=== PATIENT | male | born 2000 | race Asian ===

== ENCOUNTER 2023-09-17 07:57 | Observation (INO) ==
--- OUTSIDE RECORDS SUMMARY | 2023-09-17 08:01 | External Medical Summary | Continuity of Care Document ---
Author Name Unknown Organization [facility] [address] [facility] [address] Address [address] [place], [place] [id number] Encounter [facility] [id number] Date(s): 05/27/23 - 05/27/23 [facility] [address] [facility] [address] [facility] [address] [place] [id number] Encounter Diagnosis Closed patellar dislocation(Discharge Diagnosis) - 05/27/23 Discharge Disposition: Home or Self Care Attending Physician: DAVID Meza [place] Allergies, Adverse Reactions, Alerts No Known Medication Allergies Medications No Known Medications Mental Status 05/27/23 Barriers to Learning one year None evide nt Mandatory Health Literacy Documentation Yes Health Literacy Communication Barriers N ever Primary Language Persian Problem List No Chronic Problems Diagnosis Diagnosis Type Effective Dates Health Status Clinical Service Informant Closed patellar dislocation Discharge Diagnosis 05/27/23 Vital Signs Most recent to oldest [Reference Range]: 1 Height 164.9 cm (05/27/23 2:22 PM) Patient Weight 54 kg (05/27/23 2:22 PM) Body Mass Index 19.86 kg/m2 (05/27/23 2:22 PM) Social History Social History Type Response Smoking Status Never smoked cigaret simran Sex Male
[2023-09-17] MEDS ORDERED: MoRPHine SULFATE 4 MG/ML 1 ML CARP\\VIAL IV STA (08:14)
[2023-09-17] MEDS ORDERED: ONDANSETRON INJ 2 MG/ML 2 ML VIAL IV STA (08:14)
[2023-09-17] MEDS ORDERED: SODIUM CHLORIDE 0.9% 1,000 ML IV ONE ×2 (08:14→10:40)
--- NOTE | 2023-09-17 08:17 | Emergency Department Note ---
Impression & Plan Acute appendicitis with localized peritonitis ED Provider Note Name: KATIE MADERA Age: 22 Sex: Male Arrives Via: Walk-In Informant: Patient ED Provider: Ruben Estrada MD Chief Complaint: Abdominal pain Impression: As per impressions above Medical Decision Makin-year-old healthy male with history of acne arrives for evaluation of right lower quadrant abdominal pain over the last few hours. He does have tenderness palpation of the right lower quadrant. CT of the abdomen pelvis was obtained which reveals acute appendicitis. Laboratory workup is relatively benign. I do not feel that he is septic at this time. He is empirically given IV Mefoxin. I discussed with general surgeon who evaluated the patient and will bring him to the operating room. Triage/Nursing Notes reviewed by Me Differential:Appendicitis, inflammatory bowel disease, renal colic, UTI, ischemia, many other pathologies considered. Vital Signs: reviewed and remarkable for mildly tachycardic Interventions: Normal saline bolus 1 L IV x 2, morphine IV, Zofran IV, Mefoxin IV Labs:ED labs Reviewed by me and remarkable for no significant abnormalities Imaging:CT abdomen pelvis as per my informal interpretation reveals acute appendicitis with inflammatory changes no evidence of free air or abscess appreciated. Confirmed by radiologist. Consults:Dr. Garza of the general surgery service will take patient to the OR. Plan: Disposition: OR Condition: Good History of Present Illness: 22-year-old male arrives for evaluation of abdominal pain. Patient states he has been having right lower quadrant abdominal pain throughout the last several hours. Initially started as periumbilical and gradually worsening. Now associated with nausea. Does note some mild urinary frequency/urgency. No history of renal colic, abdominal infections, abdominal surgeries. He has not had any recent falls, trauma, injuries. Denies any other symptoms such as chest pain, fevers, vomiting, diarrhea, leg swelling, rashes or other concerning signs or symptoms. No medication prior to arrival. Past Medical History: Acne Home Medications: Acne medication Allergies: No known medication allergies Vitals:Blood Pressure: 124/79, Pulse 106, RR 20, T 36.4C, O2 100% on RA Physical Exam: GENERAL: Patient is moderately uncomfortable appearing and in moderate distress. RESPIRATORY: No dyspnea. Clear to auscultation and equal bilaterally. CARDIOVASCULAR: Regular rate and rhythm.No murmur appreciated. GASTROINTESTINAL: Moderate right lower quadrant tenderness palpation no peritonitis normal active bowel sounds BACK: No midline tenderness, no CVA tenderness EXTREMITIES: Normal motion all extremities, no cyanosis, no edema. NEUROLOGIC: Alert and oriented. No focal neurologic deficits appreciated SKIN: No rash, no jaundice, no diaphoresis. PSYCH: Appropriate GCS: 15 ED Course: Times/Reassessments: Patient is feeling a bit better after some IV pain medicine. He is agreeable to evaluation by surgeon. Ruben Estrada MD Past Med/Surg History Medical History No pertinent past medical history Surgical History No pertinent past surgical history Social History Smoking Status: Never smoker Preferred Language: Romanian Feels Safe at Home: Yes Allergies Allergies Allergy/AdvReac Type Severity Reaction Status Date / Time No Known Allergies Allergy Verified 09/17/23 09:21 Home Meds Home Medications Medication Instructions Recorded Confirmed isotretinoin 30 mg capsule 30 mg PO DAILY 09/17/23 09/17/23 (Accutane) Results & Data (ED) Vital Signs Vital Signs - 24 hr 09/17/23 07:57 09/17/23 08:00 09/17/23 08:45 Temperature 36.4 C L Temperature Source Temporal Artery Scan Pulse Rate 106 H 88 Pulse Rate [Apical] 84 Pulse Rhythm [Apical] Pulse Strength [Apical] Respiratory Rate 16 20 Respiratory Effort / Characteristics Non-Labored Respiratory Depth Normal Respiratory Pattern Blood Pressure 124/79 Blood Pressure [Left Arm] 128/76 Blood Pressure Mean 94 Blood Pressure Mean [Left Arm] 93 Pulse Oximetry 100 100 Oxygen Delivery Method Room Air Oxygen Flow Rate Sepsis Recent Fever Within 48 Hours No Sepsis New/Unexplained Change in Mental Status N/A Sepsis Action Taken by Nursing No Action Required 09/17/23 10:51 09/17/23 13:23 09/17/23 13:30 Temperature 36.0 C L Temperature Source Temporal Artery Scan Pulse Rate Pulse Rate [Apical] 129 H 92 H 96 H Pulse Rhythm [Apical] Regular Regular Pulse Strength [Apical] Normal Normal Respiratory Rate 16 16 18 Respiratory Effort / Characteristics Non-Labored Spontaneous Non-Labored Spontaneous Respiratory Depth Normal Normal Respiratory Pattern Regular Regular Blood Pressure Blood Pressure [Left Arm] 143/88 H 103/51 L 107/56 L Blood Pressure Mean Blood Pressure Mean [Left Arm] 106 68 73 Pulse Oximetry 100 100 100 Oxygen Delivery Method Room Air Oxymask Oxymask Oxygen Flow Rate 3 6 Sepsis Recent Fever Within 48 Hours Sepsis New/Unexplained Change in Mental Status Sepsis Action Taken by Nursing 09/17/23 13:40 09/17/23 13:50 09/17/23 14:00 Temperature Temperature Source Pulse Rate Pulse Rate [Apical] 100 H 100 H 98 H Pulse Rhythm [Apical] Regular Regular Regular Pulse Strength [Apical] Normal Normal Normal Respiratory Rate 16 20 17 Respiratory Effort / Characteristics Non-Labored Spontaneous Non-Labored Spontaneous Non-Labored Spontaneous Respiratory Depth Normal Normal Normal Respiratory Pattern Regular Regular Regular Blood Pressure Blood Pressure [Left Arm] 121/62 129/84 141/71 H Blood Pressure Mean Blood Pressure Mean [Left Arm] 81 99 94 Pulse Oximetry 100 99 100 Oxygen Delivery Method Room Air Room Air Room Air Oxygen Flow Rate 0 0 0 Sepsis Recent Fever Within 48 Hours Sepsis New/Unexplained Change in Mental Status Sepsis Action Taken by Nursing 09/17/23 14:10 09/17/23 14:25 Temperature 36.6 C Temperature Source Oral Pulse Rate Pulse Rate [Apical] 87 102 H Pulse Rhythm [Apical] Regular Regular Pulse Strength [Apical] Normal Normal Respiratory Rate 16 16 Respiratory Effort / Characteristics Non-Labored Spontaneous Non-Labored Spontaneous Respiratory Depth Normal Normal Respiratory Pattern Regular Regular Blood Pressure Blood Pressure [Left Arm] 138/78 152/69 H Blood Pressure Mean Blood Pressure Mean [Left Arm] 98 96 Pulse Oximetry 98 96 Oxygen Delivery Method Room Air Room Air Oxygen Flow Rate 0 0 Sepsis Recent Fever Within 48 Hours Sepsis New/Unexplained Change in Mental Status Sepsis Action Taken by Nursing Laboratory Data 09/17/23 08:30 09/17/23 08:30 Lab Results 09/17/23 09/17/23 Range/Units 08:30 10:41 WBC 11.66 H (4.8-10.8) K/ul RBC 5.75 (4.70-6.10) M/uL Hgb 13.8 L (14.0-18.0) g/dl Hct 43.9 (42.0-52.0) % MCV 76.3 L (80.0-100.0) fL MCH 24.0 L (25.0-34.0) pg MCHC 31.4 L (32.0-36.0) g/dL RDW Std Deviation 40.3 (36.4-46.3) fL RDW Coeff of Grant 14.7 H (11.5-14.5) % Plt Count 273 (130-400) K/uL MPV 9.1 L (9.4-12.4) fL Immature Gran % (Auto) 0.4 % Neut % (Auto) 70.7 % Lymph % (Auto) 22.0 % [place] % (Auto) 6.1 % Eos % (Auto) 0.6 % Baso % (Auto) 0.2 % Neut # (Auto) 8.25 H (1.40-6.50) K/uL Lymph # (Auto) 2.56 (1.20-3.40) K/uL [place] # (Auto) 0.71 H (0.11-0.59) K/uL Eos # (Auto) 0.07 (0.00-0.50) K/uL Baso # (Auto) 0.02 (0.00-0.20) K/uL Immature Gran # (Auto) 0.05 (0.01-0.20) K/uL Sodium 138 (136-145) mmol/L Potassium 3.8 (3.5-5.1) mmol/L Chloride 101 (98-107) mmol/L Carbon Dioxide 29 (21-32) mmol/L Anion Gap 8 (3-11) BUN 15 (6-23) mg/dl Creatinine 1.08 (0.6-1.4) mg/dl Est Cr Clr Drug Dosing 82.3 ml/min Est GFR ( Amer) 113.9 ml/min Est GFR (Non-Af Amer) 98.3 ml/min BUN/Creatinine Ratio 13.9 (10-20) Glucose 93 (70-99(Fasting)) mg/dl Calcium 9.8 (8.6-10.3) mg/dl Total Bilirubin 0.4 (0.2-1.0) mg/dl Direct Bilirubin 0.1 (0-0.2) mg/dl AST 16 (13-39) U/L ALT 15 (7-52) U/L Alkaline Phosphatase 60 (34-104) U/L Total Protein 7.6 (6.0-8.3) gm/dl Albumin 4.8 (3.4-5.0) gm/dl Lipase 5 L (11-82) U/L Urine Color Yellow Urine Appearance Clear (Clear) Urine pH 6.5 (4.5-7.5) Ur Specific [place] 1.017 (1.000-1.030) Urine Protein Negative (Negative) Urine Glucose (UA) Negative (Negative) Urine Ketones Negative (Negative) Urine Blood Negative (Negative) Urine Nitrite Negative (Negative) Urine Bilirubin Negative (Negative) Urine Urobilinogen Negative (Negative) Ur Leukocyte Esterase Negative (Negative) Administered Medications Fentanyl Citrate (Fentanyl Citrate Pf 100 Mcg/2 Ml Vial) 50 mcg IV Q5M PRN PRN Reason: PACU Use Only-Pain Stop: 09/17/23 19:12 Last Admin: 09/17/23 14:23 Dose: 50 mcg Documented By: Admin: 09/17/23 14:18 Dose: 50 mcg Documented By: NAVDEEP Meperidine HCl (Meperidine Hcl 50 Mg/Ml Carp) 12.5 mg IV ONCE ONE Stop: 09/17/23 13:53 Last Admin: 09/17/23 13:56 Dose: Not Given Documented By: NAVDEEP Discontinued Medications Bupivacaine HCl/Epinephrine Bitart (Bupivacaine/Epinephrine 0.5% Mpf 1:200,000 30 Ml Vial) Confirm Administered Dose 30 ml .ROUTE .STK-MED ONE Stop: 09/17/23 11:43 Last Admin: 09/17/23 13:08 Dose: 22 ml Documented By: SUNDAR Sodium Chloride (Nss) 1,000 mls @ 999 mls/hr IV .Q1H1M ONE Stop: 09/17/23 09:14 Last Infusion: 09/17/23 09:29 Dose: Infused Documented By: Admin: 09/17/23 08:24 Dose: 999 mls/hr Documented By: YOJANA Cefoxitin Sodium (Mefoxin) 2,000 mg in 60 mls @ 100 mls/hr IV NOW STA Stop: 09/17/23 09:51 Last Infusion: 09/17/23 11:39 Dose: Infused Documented By: Admin: 09/17/23 09:24 Dose: 100 mls/hr Documented By: YOJANA Sodium Chloride (Nss) 1,000 mls @ 999 mls/hr IV .Q1H1M ONE Stop: 01/27/24 11:40 Last Infusion: 09/17/23 11:39 Dose: Infused Documented By: Admin: 09/17/23 11:00 Dose: 999 mls/hr Documented By: YOJANA Ioversol (Optiray 320 500ml) 94 ml IV ONCE ONE Stop: 09/17/23 08:58 Last Admin: 09/17/23 08:58 Dose: 94 ml Documented By: MONICA Meperidine HCl (Meperidine Hcl 25 Mg/Ml Carp/Vial) Confirm Administered Dose 25 mg .ROUTE .STK-MED ONE Stop: 09/17/23 13:55 Last Increment: 09/17/23 13:55 Dose: 12.5 mg Documented By: NAVDEEP Morphine Sulfate (Morphine Sulfate 4 Mg/Ml 1 Ml Carp\Vial) 4 mg IV NOW STA Stop: 09/17/23 08:15 Last Admin: 09/17/23 08:23 Dose: 4 mg Documented By: YOJANA Ondansetron HCl (Ondansetron Inj 2 Mg/Ml 2 Ml Vial) 4 mg IV NOW STA Stop: 09/17/23 08:15 Last Admin: 09/17/23 08:24 Dose: 4 mg Documented By: YOJANA Imaging Data Radiologist's Impression: Abdomen/Pelvis CT 09/17/23 08:14 CT abd pelvis IV con only CLINICAL HISTORY: RLQ abdominal pain TECHNIQUE: Helical axial images of the abdomen and pelvis were obtained and displayed. Automated dose lowering techniques and/or adjustment according to patient size were utilized for this exam. This exam was performed with intravenous contrast. CT DOSE: 357.48 mGy.cm COMPARISON: None available at the time of this dictation. FINDINGS: Lower chest: No acute abnormality. Liver: Unremarkable. No focal lesions are seen. Gallbladder and biliary tree: No calcified gallstones. Normal caliber wall. No intra- or extrahepatic biliary ductal dilation. Pancreas: Unremarkable, no focal lesions. Spleen: Unremarkable. Adrenals: Unremarkable. Kidneys and ureters: Unremarkable. Bladder: Unremarkable. Reproductive organs: Unremarkable. Bowel: There is mild appendiceal wall thickening and enhancement measuring 7 mm with surrounding free fluid. Lymph nodes Retroperitoneal: Unremarkable. Pelvic: Unremarkable. Mesenteric: Unremarkable. Peritoneum: Normal. Vessels: Unremarkable. Abdominal wall: Unremarkable. Bones: Unremarkable. IMPRESSION: There is prominence of the appendix with surrounding free fluid concerning for acute appendicitis. No evidence of rupture or abscess formation. ACT 112: Negative or not required by law. Electronically signed by: Pop Cortes M.D. 09/17/2023 9:12 AM Discharge Plan Visit Data Chief Complaint: Abdominal Pain Stated Complaint: ABDOMINAL PAIN ED Provider: Ruben Estrada Discharge Problem: Acute appendicitis with localized peritonitis Patient Disposition: Admitted As Inpatient Discharge Instructions Interventions: ED Discharge Assessment Last Done: 09/17/23 11:40 Discharge Problem: Acute appendicitis with localized peritonitis Qualifiers: Appendicitis gangrene presence: without gangrene Appendicitis perforation presence: without perforation Appendicitis abscess presence: without abscess Q ualified Code(s): K35.30 - Acute appendicitis with localized peritonitis, without perforation or gangrene
[2023-09-17] MEDS ORDERED: OPTIRAY 320 500ml IV ONE (08:57)
[2023-09-17 08:58] LABS: Basophils # (auto) 0.02 K/uL (0.00-0.20); Basophils % (auto) 0.2 %; Eosinophils # (auto) 0.07 K/uL (0.00-0.50); Eosinophils % (auto) 0.6 %; Hematocrit (blood only) 43.9 % (42.0-52.0); Hemoglobin 13.8 g/dl (14.0-18.0); Immature Granulocytes # (auto) 0.05 K/uL (0.01-0.20); Immature Granulocytes % (auto) 0.4 %; Lymphocytes # (auto) 2.56 K/uL (1.20-3.40); Mean Corpuscular Hgb Conc 31.4 g/dL (32.0-36.0); Mean Corpuscular Volume 76.3 fL (80.0-100.0); Mean Platelet Volume 9.1 fL (9.4-12.4); Monocytes # (auto) 0.71 K/uL (0.11-0.59); Monocytes % (auto) 6.1 %; Neutrophils # (auto) 8.25 K/uL (1.40-6.50); Neutrophils % (auto) 70.7 %; Platelet Count 273 K/uL (130-400); RDW Coefficient of Variation 14.7 % (11.5-14.5); RDW Standard Deviation 40.3 fL (36.4-46.3); Red Blood Count 5.75 M/uL (4.70-6.10); White Blood Count 11.66 K/ul (4.8-10.8)
--- NOTE | 2023-09-17 09:13 | CT Scan Report ---
CT abd pelvis IV con only CLINICAL HISTORY: RLQ abdominal pain TECHNIQUE: Helical axial images of the abdomen and pelvis were obtained and displayed. Automated dose lowering techniques and/or adjustment according to patient size were utilized for this exam. This e xam was performed with intravenous contrast. CT DOSE: 357.48 mGy.cm COMPARISON: None available at the time of this dictation. FINDINGS: Lower chest: No acute abnormality. Liver: Unremarkable. No focal lesions are seen. Gallbladder and biliary tree: No calcified gallstones. Normal caliber wall. No intra- or extrahepatic biliary ductal dilation. Pancreas: Unremarkable, no focal lesions. Spleen: Unremarkable. Adrenals: Unremarkable. Kidneys and ureters: Unremarkable. Bladder: Unremarkable. Reproductive organs: Unremarkable. Bowel: There is mild appendiceal wall thickening and enhancement measuring 7 mm with surrounding free fluid. Lymph nodes Retroperitoneal: Unremarkable. Pelvic: Unremarkable. Mesenteric: Unremarkable. Peritoneum: Normal. Vessels: Unremarkable. Abdominal wall: Unremarkable. Bones: Unremarkable. IMPRESSION: There is prominence of the appendix with surrounding free fluid concerning for acute appendicitis. No evidence of rupture or abscess formation. ACT 112: Negative or not required by law. Electronically signed by: Pop Cortes M.D. 09/17/2023 9:12 AM
[2023-09-17] MEDS ORDERED: cefOXitin 2,000 MG/60 ML BAG IV STA (09:16)
[2023-09-17 09:22] LABS: Albumin Level 4.8 gm/dl (3.4-5.0); BUN Creatinine Ratio 13.9 (10-20); Bilirubin Direct 0.1 mg/dl (0-0.2); Bilirubin,Total 0.4 mg/dl (0.2-1.0); Calcium 9.8 mg/dl (8.6-10.3); Creatinine Clr Calc Pharmacy 82.3 ml/min; Est GFR (African American) 113.9 ml/min; Est GFR (Non-African American) 98.3 ml/min; Potassium 3.8 mmol/L (3.5-5.1); Total Protein 7.6 gm/dl (6.0-8.3)
--- NOTE | 2023-09-17 11:02 | History & Physical Report ---
Date of Service September 17, 2023 Assessment & Plan (1) Acute appendicitis with localized peritonitis: Plan 22-year-old with acute appendicitis. I discussed the risks and benefits of a laparoscopic appendectomy with him. We discussed the postoperative course and recovery period as well as restrictions. All his questions were answered and he is agreeable to proceed. Consent has been obtained. We will take him to the operating room at the earliest convenience. History of Present Illness Primary Care Provider: [facility] 22-year-old presents with history of vague diffuse abdominal pain starting at 5:00 this morning. It has progressed to more specific right-sided pain. He does have associated nausea without vomiting. He does have chills. He denies having any prior surgical history. The pain is not sharp or stabbing. White blood cell count is elevated. CT scan demonstrates evidence of acute appendicitis. Allergies Allergy/AdvReac Type Severity Reaction Status Date / Time No Known Allergies Allergy Verified 09/17/23 09:21 Home Medications Medication Instructions Recorded Confirmed Type isotretinoin 30 mg capsule 30 mg PO DAILY 09/17/23 09/17/23 History (Accutane) Past Med/Surg History Medical History No pertinent past medical history Surgical History No pertinent past surgical history Social History Smoking Status: Never smoker Preferred Language: [place] Feels Safe at Home: Yes Review of Systems Review of Systems: All systems reviewed & are unremarkable except as noted in HPI & below Physical Exam Constitutional: WD/WN, vitals as above Eyes: PERRL, conjunctivae normal, anicteric sclerae Neck: trachea midline, no thyromegaly Respiratory: normal respiratory effort; no respiratory distress and no labored breathing Cardiovascular: Rate/Rhythm: regular rhythm and + tachycardic Gastrointestinal (Abdomen): Inspection/Auscultation: abdomen normal to inspection; abdomen not distended Percussion/Palpation: + abdomen tender (Diffusely, right side) and abdomen soft; no guarding and abdomen not rigid Skin: no rashes, warm and dry Psychiatric: A+Ox3, euthymic affect Results & Data Results & Data Vital Signs (Past 12 Hours) Vital Signs Temp Pulse Pulse Resp BP BP Pulse Ox 09/17/23 10:51 129 H 16 143/88 H 100 09/17/23 08:45 88 09/17/23 08:00 36.4 C L 106 H 20 124/79 100 09/17/23 07:57 84 16 128/76 100 O2 Del Method 09/17/23 10:51 Room Air 09/17/23 08:45 09/17/23 08:00 Room Air 09/17/23 07:57 Laboratory Results 09/17/23 09/17/23 Range/Units 10:41 08:30 WBC 11.66 H (4.8-10.8) K/ul RBC 5.75 (4.70-6.10) M/uL Hgb 13.8 L (14.0-18.0) g/dl Hct 43.9 (42.0-52.0) % MCV 76.3 L (80.0-100.0) fL MCH 24.0 L (25.0-34.0) pg MCHC 31.4 L (32.0-36.0) g/dL RDW Std Deviation 40.3 (36.4-46.3) fL RDW Coeff of [place] 14.7 H (11.5-14.5) % Plt Count 273 (130-400) K/uL MPV 9.1 L (9.4-12.4) fL Immature Gran % (Auto) 0.4 % Neut % (Auto) 70.7 % Lymph % (Auto) 22.0 % [place] % (Auto) 6.1 % Eos % (Auto) 0.6 % Baso % (Auto) 0.2 % Neut # (Auto) 8.25 H (1.40-6.50) K/uL Lymph # (Auto) 2.56 (1.20-3.40) K/uL Andrew # (Auto) 0.71 H (0.11-0.59) K/uL Eos # (Auto) 0.07 (0.00-0.50) K/uL Baso # (Auto) 0.02 (0.00-0.20) K/uL Immature Gran # (Auto) 0.05 (0.01-0.20) K/uL Sodium 138 (136-145) mmol/L Potassium 3.8 (3.5-5.1) mmol/L Chloride 101 (98-107) mmol/L Carbon Dioxide 29 (21-32) mmol/L Anion Gap 8 (3-11) BUN 15 (6-23) mg/dl Creatinine 1.08 (0.6-1.4) mg/dl Est Cr Clr Drug Dosing 82.3 ml/min Est GFR ( Amer) 113.9 ml/min Est GFR (Non-Af Amer) 98.3 ml/min BUN/Creatinine Ratio 13.9 (10-20) Glucose 93 (70-99(Fasting)) mg/dl Calcium 9.8 (8.6-10.3) mg/dl Total Bilirubin 0.4 (0.2-1.0) mg/dl Direct Bilirubin 0.1 (0-0.2) mg/dl AST 16 (13-39) U/L ALT 15 (7-52) U/L Alkaline Phosphatase 60 (34-104) U/L Total Protein 7.6 (6.0-8.3) gm/dl Albumin 4.8 (3.4-5.0) gm/dl Lipase 5 L (11-82) U/L Urine Color Pending Urine Appearance Pending Urine pH Pending Ur Specific [place] Pending Urine Protein Pending Urine Glucose (UA) Pending Urine Ketones Pending Urine Blood Pending Urine Nitrite Pending Urine Bilirubin Pending Urine Urobilinogen Pending Ur Leukocyte Esterase Pending Diagnostic Findings CT abd pelvis IV con only CLINICAL HISTORY: RLQ abdominal pain TECHNIQUE: Helical axial images of the abdomen and pelvis were obtained and displayed. Automated dose lowering techniques and/or adjustment according to patient size were utilized for this exam. This exam was performed with intravenous contrast. CT DOSE: 357.48 mGy.cm COMPARISON: None available at the time of this dictation. FINDINGS: Lower chest: No acute abnormality. Liver: Unremarkable. No focal lesions are seen. Gallbladder and biliary tree: No calcified gallstones. Normal caliber wall. No intra- or extrahepatic biliary ductal dilation. Pancreas: Unremarkable, no focal lesions. Spleen: Unremarkable. Adrenals: Unremarkable. Kidneys and ureters: Unremarkable. Bladder: Unremarkable. Reproductive organs: Unremarkable. Bowel: There is mild appendiceal wall thickening and enhancement measuring 7 mm with surrounding free fluid. Lymph nodes Retroperitoneal: Unremarkable. Pelvic: Unremarkable. Mesenteric: Unremarkable. Peritoneum: Normal. Vessels: Unremarkable. Abdominal wall: Unremarkable. Bones: Unremarkable. IMPRESSION: There is prominence of the appendix with surrounding free fluid concerning for acute appendicitis. No evidence of rupture or abscess formation. ACT 112: Negative or not required by law. (1) Acute appendicitis with localized peritonitis Appendicitis gangrene presence: without gangrene Appendicitis perforation presence: without perforation Appendicitis abscess presence: without abscess Qualified Code(s): K35.30 - Acute appendicitis with localized peritonitis, without perforation or gangrene
[2023-09-17 11:04] LABS: Appearance Urine Clear (Clear); Bilirubin Urine Negative (Negative); Blood Urine Negative (Negative); Color Urine Yellow; Glucose Urine UA Negative (Negative); Ketones Urine Negative (Negative); Leukocyte Esterase Urine Negative (Negative); Nitrite Urine Negative (Negative); Protein Urine Negative (Negative); Specific Gravity Urine 1.017 (1.000-1.030); Urobilinogen Urine Negative (Negative); pH Urine 6.5 (4.5-7.5)
[2023-09-17] MEDS ORDERED: ATROPINE SULFATE 0.1 MG/ML 10ML SYR IV PRN (11:12)
[2023-09-17] MEDS ORDERED: ePHEDrine sulfate 50 MG/ML AMP IV PRN (11:12)
[2023-09-17] MEDS ORDERED: ONDANSETRON INJ 2 MG/ML 2 ML VIAL IV PRN ×2 (11:12→14:50)
--- NOTE | 2023-09-17 11:13 | Anesthesiology Consultation ---
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 Surgery Operation Date: 09/17/23 11:30 Proposed Procedures p Laparoscopic Appendectomy - Kalin Garza MD Height/Weight Height: 5 ft 5 in Weight: 53.3 kg Allergies Allergy/AdvReac Type Severity Reaction Status Date / Time No Known Allergies Allergy Verified 09/17/23 09:21 Medications Home Medications Medication Instructions Recorded Confirmed Last Taken isotretinoin 30 mg capsule 30 mg PO DAILY 09/17/23 09/17/23 09/17/23 (Accutane) Past Medical History Medical History No pertinent past medical history Past Surgical History Surgical History No pertinent past surgical history Social History Smoking Status: Never smoker Physical Exam Vital Signs Last Vital Signs Temp 97.5 F L 09/17/23 08:00 Pulse 129 H 09/17/23 10:51 Resp 16 09/17/23 10:51 BP 143/88 H 09/17/23 10:51 Pulse Ox 100 09/17/23 10:51 O2 Del Method Room Air 09/17/23 10:51 Testing Laboratory Results 09/17/23 08:30 09/17/23 08:30 Urine Color Yellow 09/17/23 10:41 Urine Appearance Clear (Clear) 09/17/23 10:41 Urine pH 6.5 (4.5-7.5) 09/17/23 10:41 Ur Specific [place] 1.017 (1.000-1.030) 09/17/23 10:41 Urine Protein Negative (Negative) 09/17/23 10:41 Urine Glucose (UA) Negative (Negative) 09/17/23 10:41 Urine Ketones Negative (Negative) 09/17/23 10:41 Urine Nitrite Negative (Negative) 09/17/23 10:41 Ur Leukocyte Esterase Negative (Negative) 09/17/23 10:41
[2023-09-17] MEDS ORDERED: BUPIVACAINE/EPINEPHRINE 0.5% MPF 1:200,000 30 ML VIAL ONE (11:42)
[2023-09-17] MEDS ORDERED: fentaNYL citrate PF 100 MCG/2 ML VIAL ONE (11:53)
[2023-09-17] MEDS ORDERED: MIDAZOLAM HCL 1 MG/ML 2ML VIAL ONE (11:53)
[2023-09-17] MEDS ORDERED: ceFAZolin 330 MG/ML 1 GM VIAL ONE (12:24)
[2023-09-17] MEDS ORDERED: DEXAMETHASONE SOD INJ 4 MG/ML VIAL ONE (12:30)
[2023-09-17] MEDS ORDERED: ROCURONIUM BROMIDE 10 MG/ML 5 ML VIAL IV ONE (12:30)
[2023-09-17] MEDS ORDERED: LIDOCAINE 2% 2 ML VIAL/AMP(20MG/ML) INFIL ONE (12:30)
[2023-09-17] MEDS ORDERED: ONDANSETRON INJ 2 MG/ML 2 ML VIAL ONE (12:30)
[2023-09-17] MEDS ORDERED: PROPOFOL IV EMULSION 10 MG/ML 20 ML VIAL IV ONE (12:30)
[2023-09-17] MEDS ORDERED: SUGAMMADEX SODIUM 200 MG/2 ML VIAL IV ONE (12:45)
[2023-09-17] MEDS ORDERED: KETOROLAC 30 MG/ML VIAL ONE (12:45)
--- NOTE | 2023-09-17 13:23 | Post Operative Brief Note ---
Immediate Post Op Note v1 Date of Surgery September 17, 2023 Pre & Post Diagnosis Operation Date: 09/17/23 11:30 Pre-Op Diagnosis: Acute appendicitis with localized peritonitis Post-Op Diagnosis: Acute appendicitis with localized peritonitis I identified the patient and participated in the time-out.: Yes Procedure Operation Date: 09/17/23 11:30 Actual Procedures p Laparoscopic Appendectomy(Not Applicable) - Kalin Garza MD Surgeon Kalin Garza MD Ripening Room Hand None Estimated Blood Loss 5 Findings Consistent with Post-Op Diagnosis Drains Other (straight cath at end of procedure by Lois Rucker, data technical lead)
--- NOTE | 2023-09-17 13:24 | Operative Report ---
Post Operative Report Pre & Post Diagnosis Operation Date: 09/17/23 11:30 Pre-Op Diagnosis: Acute appendicitis with localized peritonitis Post-Op Diagnosis: Acute appendicitis with localized peritonitis I identified the patient and participated in the time-out.: Yes Procedure Operation Date: 09/17/23 11:30 Actual Procedures p Laparoscopic Appendectomy(Not Applicable) - Kalin Garza MD Surgeon Kalin Garza MD Oil Tester None Estimated Blood Loss 5 Findings Consistent with Post-Op Diagnosis Acute appendicitis, no perforation Specimens Appendix Drains None Anesthesia Type General Complications No immediate complications Description of Procedure The patient was taken to the operating room, and placed supine on the operating table. A timeout was performed, perioperative antibiotics were administered, SCD boots were placed. After adequate anesthesia and analgesia was obtained, the abdomen was prepped and draped in the normal sterile fashion. A 1 cm incision was made in the supraumbilical region and carried down to the level of the fascia. A trach hook was used to grasp the fascia and elevated and a varies needle was used to enter the abdominal cavity. The abdomen was insufflated to a pressure of 15 mmHg, and a 5 mm trocar was placed in this location. A 5 mm 30 degree laparoscope was placed into the abdominal cavity, and the abdomen was surveyed. The patient was placed in Trendelenburg and slightly to the left. One 5 mm trocar was placed in the right upper quadrant, and one 12 mm trocar was placed in the left lower quadrant under direct visualization. The right colon was identified and traced down to the cecum. The appendix was identified and elevated anteriorly and medially. A window was created at the base of the appendix with a [place] dissector. The Endo ALISHA stapler was used to transect the appendix at its base through noninflamed tissue, and subsequently the mesoappendix. The appendix was placed in an Endo Catch bag, and removed via the left lower quadrant port site. Attention was turned to hemostasis, which was excellent. The bowel was then run back from the terminal ileum towards the ligament of Treitz. No other pathology was noted within the small bowel. The abdomen was copiously irrigated and suctioned free, and again hemostasis was found to be excellent. All trochars removed under direct visualization. The abdomen was desufflated. The fascia in the 12 mm port site was closed with a 0 Vicryl suture. The skin was closed with a running 4-0 Monocryl subcuticular stitch. Dermabond was applied. The patient tolerated the procedure without complication, and was transferred in stable condition to the PACU. All instrument, needle, and sponge counts were correct at the end of the case. I attest to the content of the Intraoperative Record and any orders documented therein. Any exceptions are noted below.
[2023-09-17] MEDS ORDERED: MEPERIDINE HCL 50 MG/ML CARP IV ONE (13:52)
[2023-09-17] MEDS ORDERED: MEPERIDINE HCL 25 MG/ML CARP/VIAL ONE (13:54)
[2023-09-17] MEDS: fentaNYL citrate PF 100 MCG/2 ML VIAL IV PRN ×2 (14:18→14:23)
[2023-09-17] MEDS ORDERED: ceFAZolin 2000MG 2,000 MG/15 ML SYR IV ONE (14:42)
[2023-09-17] MEDS ORDERED: KETOROLAC 30 MG/ML VIAL IV PRN (14:50)
[2023-09-17] MEDS ORDERED: MoRPHine SULFATE 2 MG/ML CARP IV PRN (14:50)
[2023-09-17] MEDS ORDERED: PROMETHAZINE HCL 12.5 MG in SODIUM CHLORIDE 0.9% 50 ML IV PRN (14:50)
[2023-09-17] MEDS ORDERED: diphenhydrAMINE Capsule 25 MG CAP PO PRN (14:50)
[2023-09-17] MEDS ORDERED: oxyCODONE/ACETAMINOPHEN 5mg/325mg TAB PO PRN (14:50)
--- NOTE | 2023-09-17 15:11 | Anesthesiology Progress Note ---
Date of Service September 17, 2023 Anesthesia Post Procedure Vital Signs Vital Signs: Temp Pulse Pulse Pulse Resp BP BP 09/17/23 14:40 98.8 F 118 H 16 135/74 09/17/23 14:25 97.9 F 102 H 16 152/69 H 09/17/23 14:10 87 16 138/78 09/17/23 14:00 98 H 17 141/71 H 09/17/23 13:50 100 H 20 129/84 09/17/23 13:40 100 H 16 121/62 09/17/23 13:30 96 H 18 107/56 L 09/17/23 13:23 96.8 F L 92 H 16 103/51 L 09/17/23 10:51 129 H 16 143/88 H 09/17/23 08:45 88 09/17/23 08:00 97.5 F L 106 H 20 124/79 09/17/23 07:57 84 16 128/76 Pulse Ox O2 Del Method O2 Flow Rate 09/17/23 14:40 98 Room Air 09/17/23 14:25 96 Room Air 0 09/17/23 14:10 98 Room Air 0 09/17/23 14:00 100 Room Air 0 09/17/23 13:50 99 Room Air 0 09/17/23 13:40 100 Room Air 0 09/17/23 13:30 100 Oxymask 6 09/17/23 13:23 100 Oxymask 3 09/17/23 10:51 100 Room Air 09/17/23 08:45 09/17/23 08:00 100 Room Air 09/17/23 07:57 100 Pain Intensity Medial Abdomen: Pain Intensity: 3 Transfer of Care Handoff Completed per policy Notes Mental Status: alert / awake / arousable and participated in evaluation Patient Amnestic to Procedure: Yes Nausea / Vomiting: adequately controlled Pain: adequately controlled Airway Patency, RR, SpO2: stable & adequate BP & HR: stable & adequate Hydration State: stable & adequate Anesthetic Complications: no major complications apparent and Pt Satisfied with anesthetic care
[2023-09-17] MEDS ORDERED: SODIUM CHLOR 0.45% + 20MEQ KCL 20 MEQ/1,000 ML BAG IV SCH (17:30)
[2023-09-18] MEDS: ENOXAPARIN INJ 40 MG/0.4 ML SYR SQ SCH ×2 (05:34→06:05)
[2023-09-18 06:08] LABS: Basophils # (auto) 0.01 K/uL (0.00-0.20); Basophils % (auto) 0.1 %; Eosinophils # (auto) 0.01 K/uL (0.00-0.50); Eosinophils % (auto) 0.1 %; Hematocrit (blood only) 39.5 % (42.0-52.0); Hemoglobin 13.1 g/dl (14.0-18.0); Immature Granulocytes # (auto) 0.01 K/uL (0.01-0.20); Immature Granulocytes % (auto) 0.1 %; Lymphocytes # (auto) 1.71 K/uL (1.20-3.40); Lymphocytes % (auto) 22.4 %; Mean Corpuscular Hgb Conc 33.2 g/dL (32.0-36.0); Mean Corpuscular Volume 75.2 fL (80.0-100.0); Mean Platelet Volume 9.5 fL (9.4-12.4); Monocytes % (auto) 7.9 %; Neutrophils % (auto) 69.4 %; Platelet Count 269 K/uL (130-400); RDW Standard Deviation 40.8 fL (36.4-46.3); Red Blood Count 5.25 M/uL (4.70-6.10); White Blood Count 7.64 K/ul (4.8-10.8)
[2023-09-18 06:37] LABS: Albumin Globulin Ratio 1.6 (0.9-2); Albumin Level 4.1 gm/dl (3.4-5.0); BUN Creatinine Ratio 8.6 (10-20); Bilirubin,Total 0.7 mg/dl (0.2-1.0); Calcium 9.4 mg/dl (8.6-10.3); Creatinine Clr Calc Pharmacy 84.6 ml/min; Est GFR (African American) 117.9 ml/min; Est GFR (Non-African American) 101.7 ml/min; Globulin 2.5 gm/dl (2.5-4.0); Potassium 3.9 mmol/L (3.5-5.1); Total Protein 6.6 gm/dl (6.0-8.3)
[2023-09-18] MEDS ORDERED: ACETAMINOPHEN 325 MG TAB PO PRN (09:40)
--- NOTE | 2023-09-18 13:47 | Surgery Progress Note ---
Date of Service September 18, 2023 Assessment & Plan (1) Acute appendicitis with localized peritonitis: Plan: POD #1 s/p laparoscopic appendectomy Doing well Discharge to home Instructions given Return to clinic for follow-up in 2 weeks Admission and Anticipated Discharge Date Admission Date: September 17, 2023 Subjective POD #1 lap appendectomy. Doing very well. Tolerating diet. No nausea or vomiting. Pain controlled. Physical Exam Physical Exam: NAD, & O x 3 AFVSS Abdomen: Soft, nontender Incisions: C/C/I; Dermabond in place Results & Data Vital Signs (Past 12 Hours) Vital Signs Temp Pulse Resp BP Pulse Ox O2 Del Method 09/18/23 08:32 36.5 C 70 18 134/72 97 Room Air 09/18/23 02:56 36.8 C 67 16 126/72 97 Room Air Laboratory Results 09/18/23 Range/Units 05:34 WBC 7.64 (4.8-10.8) K/ul RBC 5.25 (4.70-6.10) M/uL Hgb 13.1 L (14.0-18.0) g/dl Hct 39.5 L (42.0-52.0) % MCV 75.2 L (80.0-100.0) fL MCH 25.0 (25.0-34.0) pg MCHC 33.2 (32.0-36.0) g/dL RDW Std Deviation 40.8 (36.4-46.3) fL RDW Coeff of Grant 15.0 H (11.5-14.5) % Plt Count 269 (130-400) K/uL MPV 9.5 (9.4-12.4) fL Immature Gran % (Auto) 0.1 % Neut % (Auto) 69.4 % Lymph % (Auto) 22.4 % [place] % (Auto) 7.9 % Eos % (Auto) 0.1 % Baso % (Auto) 0.1 % Neut # (Auto) 5.30 (1.40-6.50) K/uL Lymph # (Auto) 1.71 (1.20-3.40) K/uL [place] # (Auto) 0.60 H (0.11-0.59) K/uL Eos # (Auto) 0.01 (0.00-0.50) K/uL Baso # (Auto) 0.01 (0.00-0.20) K/uL Immature Gran # (Auto) 0.01 (0.01-0.20) K/uL Sodium 139 (136-145) mmol/L Potassium 3.9 (3.5-5.1) mmol/L Chloride 104 (98-107) mmol/L Carbon Dioxide 28 (21-32) mmol/L Anion Gap 7 (3-11) BUN 9 (6-23) mg/dl Creatinine 1.05 (0.6-1.4) mg/dl Est Cr Clr Drug Dosing 84.6 ml/min Est GFR ( Amer) 117.9 ml/min Est GFR (Non-Af Amer) 101.7 ml/min BUN/Creatinine Ratio 8.6 L (10-20) Glucose 101 H (70-99(Fasting)) mg/dl Calcium 9.4 (8.6-10.3) mg/dl Total Bilirubin 0.7 (0.2-1.0) mg/dl AST 14 (13-39) U/L ALT 12 (7-52) U/L Alkaline Phosphatase 55 (34-104) U/L Total Protein 6.6 (6.0-8.3) gm/dl Albumin 4.1 (3.4-5.0) gm/dl Globulin 2.5 (2.5-4.0) gm/dl Albumin/Globulin Ratio 1.6 (0.9-2) (1) Acute appendicitis with localized peritonitis Appendicitis gangrene presence: without gangrene Appendicitis perforation presence: without perforation Appendicitis abscess presence: without abscess Qualified Code(s): K35.30 - Acute appendicitis with localized peritonitis, without perforation or gangrene
== END 2023-09-18 14:44 | disposition home or self-care (01) ==
LOC: ED 07:57 → 3N 12:08 → OR 12:08
DX: K35.30 Acute appendicitis with localized peritonitis, without perforation or gangrene